=== PATIENT | female | born 1975 | race Caucasian/White ===

== ENCOUNTER 2017-05-07 10:36 | Day surgery (SDC) | payer BC ==
[~2017-05-07] VITALS: Ht 157.5 cm; Wt 63.0 kg
[2017-05-07] VITALS (12 sets, daily range): BP systolic 100–116; BP diastolic 64–72; PULSE 64–76; RESP 12–18; Ht 157.5 cm; Wt 63.0 kg
--- NOTE | 2017-05-07 02:40 | PREOPHP ---
DATE OF ADMISSION: 05/07/2017 SURGICAL HISTORY AND PHYSICAL HISTORY OF PRESENT ILLNESS: Patient is a 42-year-old 2, para 1, last menstrual period 03/01, with a missed . Patient did have cardiac motion on ultrasound on 04/17/2017; she cam e back on 05/02/2017, for repeat ultrasound and the fetus had only grown a few more millimeters, and there was no cardiac motion, consistent with a missed . The patient was given her options of allowing for a miscarriage or progressing with a D and C and patient opted for a D and C. She di d not want it done at the office. PAST MEDICAL HISTORY: Negative. PAST SURGICAL HISTORY: The patient has had her wisdom teeth removed only. PAST OBSTETRICAL HISTORY: Normal spontaneous vaginal delivery in 2007 without any problems. ALLERGIES: NO KNOWN DRUG ALLERGIES. REVIEW OF SYSTEMS: Negative for cardiac, respiratory, urologic, and neurologic issues. MEDICATIONS: Only vitamins. SOCIAL HISTORY: Negative. BLOOD TYPE: A negative. PHYSICAL EXAMINATION: VITAL SIGNS: The patient is 5 feet 2 inches, 140 pounds. HEART: Regular rate and rhythm. LUNGS: Clear to auscultation. ABDOMEN: Soft, nontender. PELVIC: No masses palpable. Ultrasound as described previously. EXTREMITIES: Nontender, no edema. ASSESSMENT: Missed . PLAN: Dilatation and curettage. Dictated By: MARIELA LINN/JORGE Conf#: [id number] DID#: [id number]
[~2017-05-07 10:36] MED LIST: LACTATED RINGER'S 1,000 ML IV SCH
[2017-05-07 11:44] LABS: ADD SCAN DIFF NO
[2017-05-07 11:48] LABS: BASOPHILS % 0.3 % (0.0-2.0); EOSINOPHILS # 0.1 10^3/ul (0.0-0.5); EOSINOPHILS % 1.2 % (0.0-7.0); HEMOGLOBIN 12.2 g/dl (12.0-16.0); LYMPHOCYTES # 1.3 10^3/ul (0.8-2.9); LYMPHOCYTES % 19.2 % (15.0-51.0); MEAN CORPUSCULAR HEMOGLOBIN 29.8 pg (29.0-33.0); MEAN CORPUSCULAR VOLUME 90.2 fl (82.0-101.0); MEAN PLATELET VOLUME 10.2 fl (7.4-10.4); MONOCYTE # 0.4 10^3/ul (0.3-0.9); MONOCYTES % 5.9 % (0.0-11.0); NEUTROPHIL # 4.9 10^3/ul (1.6-7.5); NEUTROPHILS % 72.7 % (39.0-77.0); PLATELET COUNT 213 10^3/UL (140-415); RED CELL DISTRIBUTION WIDTH 12.9 % (11.5-14.5); WHITE BLOOD COUNT 6.8 10^3/ul (4.8-10.8)
[2017-05-07] MEDS ORDERED: PHENYLephrine (100 MCG/ML) 5ML SYG ONE (12:53)
[2017-05-07] MEDS ORDERED: PROPOFOL 20 ML ONE (12:53)
[2017-05-07] MEDS ORDERED: MIDAZOLAM 1 MG/ML 2 ML INJ ONE (12:53)
[2017-05-07] MEDS ORDERED: LIDOCAINE 2% (SDV) 5 ML INJ ONE (12:53)
[2017-05-07] MEDS ORDERED: ONDANSETRON 4 MG INJ ONE (12:53)
[2017-05-07] MEDS ORDERED: FENTAnyl 50 MCG/ML VIAL ONE (12:53)
[2017-05-07] MEDS ORDERED: DEXAMETHASONE 4 MG/ML 1 ML INJ ONE (12:53)
[2017-05-07] MEDS ORDERED: ONDANSETRON 4 MG INJ IV PRN (14:00)
[2017-05-07] MEDS ORDERED: KETOROLAC 15 MG INJ IV ONE (14:00)
[2017-05-07] MEDS ORDERED: METOCLOPRAMIDE 10 MG INJ IV PRN (14:00)
[2017-05-07] MEDS ORDERED: OXYCODONE/ACETAMINOPHEN (5/325) TAB PO PRN ×2 (14:00)
[2017-05-07] MEDS ORDERED: morphine (1 MG/ML) 10ML SYRINGE IV PRN ×3 (14:00)
--- NOTE | 2017-05-07 14:30 | PD.PPDC ---
[employer] APPRAISER Discharge Instruction Condition Patient Condition: Good Diet Diet: Resume Regular Diet Activity/Restrictions Activity: Normal Activity May Shower Restrictions: No Sexual Activity Nothing in the Vagina No [place] No Tampons, douche Follow-up Follow-up with Physician: 6, Week/Weeks Provider Information: If any problems may call sooner. Return to clinic for [employer] Instructions: Fever greater than 101 [place] Worsening abdominal pain Excessive Vaginal Bleeding OB Instructions: Depression MARIELA CROSS MD May 07, 2017 14:30
--- NOTE | 2017-05-08 10:06 | OPR ---
Date/Time of Note Date/Time of Note DATE: 05/08/17 TIME: 10:00 Operative Report Free Text/Dictation 42 y.o. with a missed requesting termination. Procedure Date: May 07, 2017 Preoperative Diagnosis Missed Postoperative Diagnosis Same Operation Performed Dilitation with suction and sharp curretage Surgeon: MARIELA CROSS MD Anesthesia: general Anesthesiologist: CASSANDRA HANEY Estimated Blood Loss: 10 - 50 ml's Specimens Products of conception Complications: None Disposition: PACU Procedure Description Operative Report Procedure Description Pt was brought to the OR and placed under general anesthesia. Her legs were then placed in stirrups and she was prepped and draped in the usual sterile fashion. A weighted speculum was placed, the cervix was grasped with a tenaculum and the cervix was dilated with Hegar dilators. The uterus was sounded to 11 cm. A 7mm rigid, curved suction currette was attached to the suction equipment and the uterine contents were evacuated over several passes. A sharp currette was then used to scrape all the lateral phipps as well as the fundus. When all surfaces felt clear the suction was used again to remove any loosened material. The procedure was then terminated and there was minimal bleeding. The tenaculum was removed as well as the speculum.The vault and perineum were cleaned and legs brought back down to the full supine position. The procedure was terminated and the pt was brought to the recovery room in excellent condition having tolerated the procedure well. Blood type is A negative so Rhogam will be administered. MARIELA CROSS MD May 08, 2017 10:06 Complications: None Disposition: PACU Procedure Description Operative Report Procedure Description Pt was brought to the OR and placed under general anesthesia. Her legs were then placed in stirrups and she was prepped and draped in the usual sterile fashion. A weighted speculum was placed, the cervix was grasped with a tenaculum and the cervix was dilated with Hegar dilators. The uterus was sounded to 11 cm. A 7mm rigid, curved suction currette was attached to the suction equipment and the uterine contents were evacuated over several passes. A sharp currette was then used to scrape all the lateral phipps as well as the fundus. When all surfaces felt clear the suction was used again to remove any loosened material. The procedure was then terminated and there was minimal bleeding. The tenaculum was removed as well as the speculum.The vault and perineum were cleaned and legs brought back down to the full supine position. The procedure was terminated and the pt was brought to the recovery room in excellent condition having tolerated the procedure well. Blood type is A negative so Rhogam will be administered. MARIELA CROSS MD May 08, 2017 10:06
== END 2017-05-07 16:27 | disposition home or self-care (01) ==
LOC: SDS 10:36
PROVIDERS: ATTEND Obstetrics & Gynecology
DX: O02.1 Missed abortion (principal)
CPT/HCPCS: 59820; 85025; 86850; 86885; 86900; 86901; J1100; J2250; J2405; J2790; J3010; J2370